=== PATIENT | female | born 1985 | race Caucasian/White ===

== ENCOUNTER 2022-11-06 19:48 | Emergency (ER) | payer MEDICAID ==
[~2022-11-06] VITALS: Ht 152.4 cm; Wt 76.6 kg
[2022-11-06 20:29] LABS: URINE HCG NEGATIVE (NEG)
[2022-11-06 20:47] LABS: BILIRUBIN,URINE NEGATIVE (Neg); CLARITY,URINE SLIGHTLY CLOUDY (Clear); COLOR,URINE YELLOW (Yellow); GLUCOSE, URINE NEGATIVE (Neg); KETONES,URINE NEGATIVE (Neg); LEUKOCYTE ESTERASE ,URINE SMALL (Neg); NITRITES, URINE NEGATIVE (Neg); OCCULT BLOOD,URINE MODERATE (Neg); PROTEIN,URINE 30 mg/dl (Neg); UROBILINOGEN,URINE 0.2 E.U/dL (0.2-1.0)
[2022-11-06 20:48] LABS: UA COLLECTION TYPE CLN CATCH MIDSTREAM
[2022-11-06 21:01] LABS: BACTERIA,URINE 2+ /HPF (Neg); MUCUS STRANDS MODERATE /LPF (Neg); RBC,URINE 20-50 /HPF (0-2); SQUAMOUS EPITHELIAL CELL,UR MODERATE /LPF (FEW); WBC,URINE 30-50 /HPF (0-4)
[2022-11-06] MEDS ORDERED: morphine 4 MG/ML inj SYRINge IV ONE (21:05)
[2022-11-06] MEDS ORDERED: normal saline 1000ML IV soln IVB ONE (21:05)
[2022-11-06] MEDS ORDERED: ondansetron/PF 4mg/2ml inj IV ONE (21:05)
[2022-11-06 21:54] LABS: BASOPHILS % (AUTO) 0.4 % (0-1); EOSINOPHILS # (AUTO) 0.1 X10'3 (0-0.9); EOSINOPHILS % (AUTO) 1.4 % (0-6); HEMATOCRIT 39.4 % (35.0-45.0); LYMPHOCYTES # (AUTO) 2.4 X10'3 (1.1-4.8); LYMPHOCYTES % (AUTO) 26.4 % (21-51); MEAN CORPUSCULAR HEMOGLOBIN 29.1 PG (27.0-31.0); MEAN CORPUSCULAR HGB CONC 33.1 g/dL (33.0-36.5); MEAN CORPUSCULAR VOLUME 87.9 FL (78-98); MEAN PLATELET VOLUME 10.3 FL (7.4-10.4); MONOCYTES % (AUTO) 10.3 % (2-12); NEUTROPHILS # (AUTO) 5.7 X10'3 (1.8-7.7); NEUTROPHILS % (AUTO) 61.5 % (42-75); PLATELET COUNT 250 X10'3 (140-440); RED BLOOD COUNT 4.48 X10'6 (4.20-5.60); RED CELL DISTRIBUTION WIDTH 13.9 % (11.5-14.5); WHITE BLOOD COUNT 9.2 X10'3 (4.5-11.0)
[2022-11-06 22:03] LABS: ALANINE AMINOTRANSFERASE 31 U/L (12-78); ALBUMIN 3.3 G/DL (3.4-5.0); ALBUMIN/GLOBULIN RATIO 0.9 (1.1-1.5); ALKALINE PHOSPHATASE 106 IU/L (46-116); ANION GAP 8 (8-16); ASPARTATE AMINO TRANSFERASE 22 U/L (10-37); BILIRUBIN,TOTAL 0.2 MG/DL (0.1-1.0); BLOOD UREA NITROGEN 8 MG/DL (7-18); BUN/CREATININE RATIO 11.8 (10.0-20.0); CALCIUM 8.6 MG/DL (8.5-10.1); CHLORIDE 104 MMOL/L (99-107); CREATININE 0.68 MG/DL (0.40-0.90); GLUCOSE 116 MG/DL (70-104); POTASSIUM 3.7 MMOL/L (3.5-5.1); SODIUM 141 MMOL/L (135-145); TOTAL CARBON DIOXIDE 28.9 MMOL/L (24-32); TOTAL PROTEIN 6.9 G/DL (6.4-8.2); eCRCL 80 ML/MIN; eGFR > 90 ML/MIN
[2022-11-06 22:10] VITALS: BP 128/69; PULSE 89; TEMP 98.6; O2SAT 99
[2022-11-06] MEDS ORDERED: ketorolac trometh. 30mg/ml inj. IV ONE ×2 (22:25→22:35)
[2022-11-06 22:34] VITALS: RESP 16
--- NOTE | 2022-11-06 22:39 | NUR ---
ONE TORADOL ON EMAR NON-ADMINISTERED DUE TO DUPLICATE ORDER. RN PULLED TORADOL FROM [place] AND RETURNED THE MEDICATION. RN CALLED PHARMACY TO REACTIVATE ORDER IN [facility]MNICELL TO ADMINISTER AFTER PRIOR RETURN.
[2022-11-06] MEDS ORDERED: CefTRIAXone/D5W-Rocephin 1gm 50 ML IV ONE (22:40)
[2022-11-06] MEDS ORDERED: HYDR-3965 PO (22:43)
[2022-11-06] MEDS ORDERED: CEPH-585 PO (22:43)
== END 2022-11-07 00:19 | disposition home or self-care (01) ==
LOC: ER 19:50
DX: N10 Acute pyelonephritis (principal); Z79.2 Long term (current) use of antibiotics
CPT/HCPCS: 36415; 74176; 80053; 81001; 81025; 85025; 87088; 96361; 96365; 96375; 99285; J0696; J1885; J2270; J2405; J7030; 87077; 87186